=== PATIENT | female | born 1990 | race Caucasian/White ===

== ENCOUNTER → 2016-12-09 | Outpatient (CLI) | payer OTHER ==
--- NOTE | 2016-12-09 12:20 | Diagnostic Imaging Report ---
PROCEDURE: US OB SINGLE FETUS <14 WKS. TECHNIQUE: Multiple real-time grayscale images were obtained over the gravid uterus in various projections. Indication: Evaluate size and dates. Comparison: None. Discussion: Transabdominal sonographic evaluation of the pelvis was performed. Single live intrauterine at 9 weeks 3 days by today's sonographic measurements. heart rate measures 172 beats per minute. [place]-rump length measures 25.4 mm. Yolk sac is present. EDC by today's ultrasound is 07/11/2017. Neither ovary was visualized, likely obscured by bowel. No abnormal adnexal mass or fluid. Impression: 1. Single live intrauterine at 9 weeks 3 days by today's sonographic measurements. Dictated by: Dictated on workstation # [id number]
== END ==
LOC: RAD 11:41
PROVIDERS: ATTEND Family Medicine
DX: Z36 Encounter for antenatal screening of mother (principal); Z3A.09 9 weeks gestation of pregnancy
CPT/HCPCS: 76801

== ENCOUNTER → 2017-02-20 | Outpatient (CLI) | payer OTHER ==
--- NOTE | 2017-02-20 18:14 | Diagnostic Imaging Report ---
INDICATION: Size and dates. TECHNIQUE: Multiple real-time grayscale images were obtained over the gravid uterus. COMPARISON: 12/09/2016. FINDINGS: There is a single living intrauterine in a variable presentation. The placenta is anterior. There is no previa. The biometry correlates with a gestational age of 20 weeks 1 day. Estimated weights is 336 g. There appears to be normal volume of amniotic fluid. IMPRESSION: Single living intrauterine with a sonographically estimated gestational age of 20 weeks 1 day and estimated date of confinement of July 09, 2017. The heart rate is 144 beats per minute. Dictated by: Dictated on workstation # [id number]
== END ==
LOC: RAD 11:40
PROVIDERS: ATTEND Family Medicine
DX: Z36 Encounter for antenatal screening of mother (principal); Z3A.20 20 weeks gestation of pregnancy
CPT/HCPCS: 76805

== ENCOUNTER 2017-07-12 19:28 | Inpatient (IN) | payer OTHER ==
[~2017-07-12] VITALS: Ht 158.8 cm; Wt 78.6 kg
--- OUTSIDE RECORDS SUMMARY | 2017-07-12 19:32 | XMS REPORT ---
Author Author RYAN REBOLLAR [facility] eClinicalWorks Address Unknown Phone Unavailable Care Team Providers Care Commis Chef Name Role Phone RYAN REBOLLAR CP Unavailable Allergies, Adverse Reactions, Alerts Substance Reaction Event Type N.K.D.A. Info Not Available Non Drug Allergy Problems Problem Type Condition Code Onset Dates Condition Status Problem General counseling for prescription of oral contraceptives V25.01 Active Assessment Acute upper respiratory infection, unspecified J06.9 Active Problem Irregular menstrual cycle 626.4 Active Assessment Other viral agents as the cause of diseases classified elsewhere B97.89 Active Medications Medication Code System Code Instructions Start Date End Date Status Dosage 07/15 [facility] 29091255922 1-20 MG-MCG TAKE ONE TABLET BY MOUTH DAILY Claritin-D 24 Hour [facility] [address]-50 10-240 MG Orally Once a day May 13, 2015 May 28, 2015 1 tablet as needed Procedures Procedure Coding System Code Date Office Visit, Est Pt., Level 3 CPT-4 09645 May 13, 2015 Vital Signs Date/Time: May 13, 2015 Temperature 98.2 F Weight 114.5 lbs Height 63 in BMI 20.28 Index Blood Pressure Diastolic 58 mmHg Blood Pressure Systolic 110 mmHg Cardiac Monitoring Heart Rate 84 bpm Results No Known Results Summary Purpose eClinicalWorks Submission
--- OUTSIDE RECORDS SUMMARY | 2017-07-12 19:32 | XMS REPORT ---
Author Author AURELIO HDZ [facility] Address [address] [place] [address] Care Team Providers Care Sales Assistant Institutional Sales Name Role Phone AURELIO HDZ Unavailable PROBLEMS Type Condition ICD9-CM Code PRP87-IX Code Onset Dates Condition Status SNOMED Code Problem Irregular menstrual cycle 626.4 Active 12696154 Problem General counseling for prescription of oral contraceptives V25.01 Active 253379520124065 ALLERGIES No Known Allergies SOCIAL HISTORY Never Assessed PLAN OF CARE VITAL SIGNS MEDICATIONS Medication Instructions Dosage Frequency Start Date End Date Duration Status Vitamin 27-0.8 MG Active RESULTS No Results PROCEDURES No Known procedures IMMUNIZATIONS No Known Immunizations MEDICAL (GENERAL) HISTORY Type Description Date Hospitalization History [facility] 2004
--- OUTSIDE RECORDS SUMMARY | 2017-07-12 19:32 | XMS REPORT ---
Author Author DEVORAH RIOS [facility] Address [address] [place] [address] Care Team Providers Care Drafter [employer] Layout Name Role Phone DEVORAH RIOS Unavailable PROBLEMS Type Condition ICD9-CM Code VQG26-QS Code Onset Dates Condition Status SNOMED Code Problem Irregular menstrual cycle 626.4 Active 67676491 Problem General counseling for prescription of oral contraceptives V25.01 Active 079748450713307 ALLERGIES No Information SOCIAL HISTORY Never Assessed PLAN OF CARE VITAL SIGNS MEDICATIONS Unknown Medications RESULTS Name Result Date Reference Range TEST, URINE (IN HOUSE) 2016-11-14 RESULTS POSITIVE Lot # [id number] Control + Exp date 12/2017 PROCEDURES Procedure Date Ordered Result Body Site URINE TEST November 14, 2016 IMMUNIZATIONS No Known Immunizations MEDICAL (GENERAL) HISTORY Type Description Date Hospitalization History [facility] 2004
--- OUTSIDE RECORDS SUMMARY | 2017-07-12 19:32 | XMS REPORT ---
Author Author JOSE SALGADO Organization [facility] Address [address] [place] [address] Care Team Providers Care Nuclear Physician Name Role Phone JOSE SALGADO Unavailable PROBLEMS Type Condition ICD9-CM Code IST18-AT Code Onset Dates Condition Status SNOMED Code Problem Irregular menstrual cycle 626.4 Active 39349143 Problem General counseling for prescription of oral contraceptives V25.01 Active [id number] ALLERGIES Substance Reaction Event Type Date Status N.K.D.A. Unknown Non Drug Allergy Jun, Unknown SOCIAL HISTORY No smoking Hx information available PLAN OF CARE Activity Details Follow Up prn Reason: VITAL SIGNS Height 63 in 2016-06-28 Weight 115.0 lbs 2016-06-28 Temperature 97.7 degrees Fahrenheit 2016-06-28 Heart Rate 80 bpm 2016-06-28 Respiratory Rate 20 2016-06-28 BMI 20.37 kg/m2 2016-06-28 Blood pressure systolic 118 mmHg 2016-06-28 Blood pressure diastolic 76 mmHg 2016-06-28 MEDICATIONS Medication Instructions Dosage Frequency Start Date End Date Duration Status Amoxicillin 500 MG Orally every 12 hrs 1 tablet 12h Jun, Jun, 10 day(s) Active RESULTS No Results PROCEDURES Procedure Date Ordered Related Diagnosis Body Site Office Visit, Est Pt., Level 3 Jun 28, 2016 IMMUNIZATIONS No Known Immunizations
[2017-07-12 19:45] VITALS: BP 123/75
[2017-07-12] MEDS ORDERED: PREN1TAB86 PO (19:47)
[2017-07-12] MEDS ORDERED: D5 LR IV SOLUTION 1,000 ML IV ONE (20:31)
[2017-07-12] MEDS ORDERED: ZOLPIDEM 5 MG (AMBIEN) TAB PO PRN (20:45)
[2017-07-12] MEDS ORDERED: DINOPROSTONE 10 MG (CERVIDIL) INSERT PV ONE (20:45)
[2017-07-12] MEDS ORDERED: BUTORPHANOL INJ 2 MG/ML (STADOL) VIAL IV PRN (20:45)
[2017-07-12 20:53] LABS: BASOPHILS % (AUTO) 0 % (0-10); EOSINOPHILS # (AUTO) 0.1 10^3/uL (0.0-0.3); EOSINOPHILS % (AUTO) 1 % (0-10); HEMATOCRIT 39 % (35-52); HEMOGLOBIN 13.8 G/DL (11.5-16.0); LYMPHOCYTES # (AUTO) 3.1 X 10^3 (1.0-4.0); LYMPHOCYTES % (AUTO) 21 % (12-44); MEAN CORPUSCULAR HEMOGLOBIN 30 PG (25-34); MEAN CORPUSCULAR HGB CONC 36 G/DL (32-36); MEAN CORPUSCULAR VOLUME 86 FL (80-99); MEAN PLATELET VOLUME 9.9 FL (7.4-10.4); MONOCYTES % (AUTO) 7 % (0-12); NEUTROPHILS # (AUTO) 10.4 X 10^3 (1.8-7.8); NEUTROPHILS % (AUTO) 72 % (42-75); PLATELET COUNT 344 10^3/uL (130-400); RED BLOOD COUNT 4.54 10^6/uL (4.35-5.85); RED CELL DISTRIBUTION WIDTH 12.9 % (10.0-14.5); WHITE BLOOD COUNT 14.6 10^3/uL (4.3-11.0)
[2017-07-12] MEDS: D5 LR IV SOLUTION 1,000 ML IV SCH (21:07)
[2017-07-12 21:47] LABS: BAND NEUTROPHILS 12 %; BASOPHILS % (MANUAL) 0 %; EOSINOPHILS % (MANUAL) 1 %; LYMPHOCYTES % (MANUAL) 25 %; MONOCYTES % (MANUAL) 5 %; NEUTROPHILS % (MANUAL) 57 %; RBC MORPH NORMAL
[2017-07-12] MEDS ORDERED: CATHETER FLUSH 10 ML SYR IV SCH (22:00)
[2017-07-12 23:53] VITALS: BP 112/66
[2017-07-13] VITALS (84 sets, daily range): BP systolic 91–151; BP diastolic 7–84
[2017-07-13] MEDS: D5 LR IV SOLUTION 1,000 ML IV SCH ×3 (04:35→20:39)
[2017-07-13] MEDS ORDERED: OXYTOCIN/NORMAL SALINE 500 ML IV ONE (07:11)
[2017-07-13] MEDS ORDERED: OXYTOCIN/NORMAL SALINE 500 ML IV SCH (07:15)
--- NOTE | 2017-07-13 07:15 | History & Physical-OB ---
OB - Chief Complaint & HPI Date/Time Date of Admission: Date of Admission: Jul 12, 2017 at 19:28 Time Seen by Provider: 07:00 Chief Complaint/History OB-Reason for Admission/Chief: Induction of Labor Hx : 1 Hx Para: 0 Expected Date of Delivery: Jul 11, 2017 Gestational Age in Weeks: 40 Gestational Age in Days: 2 Admission Nurse Assessment Rev: Yes History of Labs GBS negative Allergies and Home Medications Allergies Coded Allergies: No Known Drug Allergies (Unverified , 07/12/17) Home Medications Vit W-Ca,Fe,FA(<1 mg) 1 Each Tablet, 1 EACH PO DAILY, (Reported) OB - History Hx of Present Care: Yes Ultrasounds: Normal mid trimester US Obstetrical Complications: None Medical Complications: None Patient Past Medical History no chronic medical problems Social History/Family History Recent Infectious Disease Expo: No Alcohol Use: Denies Use Recreational Drug Use: No Immunizations Date of Influenza Vaccine: May 03, 2017 OB - Admission Exam Physical Exam Vitals: Vital Signs 07/13/17 06:00 Temp 97.8 Pulse 96 Resp 16 B/P (MAP) 114/61 (78) O2 Delivery Room Air HEENT: Moist Membranes Heart: Rhythm Normal Lungs: Clear Abdomen: Gravid Cervical Dilatation: Fingertip Effacement: 50% Station: -3 Membranes: Intact Muhammad Scoring Tool (Modified) Dilation (cm): 0/Closed (0) Effacement (%): 31-51% (1) Descent/Station: -3 (0) Cervix Consistency: Medium(1) Cervix Position: Middle/Mid-Position (1) Labs Laboratory Tests Test 07/12/17 20:30 Range/Units White Blood Count 14.6 H 4.3-11.0 10^3/uL Red Blood Count 4.54 4.35-5.85 10^6/uL Hemoglobin 13.8 11.5-16.0 G/DL Hematocrit 39 35-52 % Mean Corpuscular Volume 86 80-99 FL Mean Corpuscular Hemoglobin 30 25-34 PG Mean Corpuscular Hemoglobin Concent 36 32-36 G/DL Red Cell Distribution Width 12.9 10.0-14.5 % Platelet Count 344 130-400 10^3/uL Mean Platelet Volume 9.9 7.4-10.4 FL Neutrophils (%) (Auto) 72 42-75 % Lymphocytes (%) (Auto) 21 12-44 % Monocytes (%) (Auto) 7 0-12 % Eosinophils (%) (Auto) 1 0-10 % Basophils (%) (Auto) 0 0-10 % Neutrophils # (Auto) 10.4 H 1.8-7.8 X 10^3 Lymphocytes # (Auto) 3.1 1.0-4.0 X 10^3 Monocytes # (Auto) 1.0 0.0-1.0 X 10^3 Eosinophils # (Auto) 0.1 0.0-0.3 10^3/uL Basophils # (Auto) 0.0 0.0-0.1 10^3/uL Neutrophils % (Manual) 57 % Lymphocytes % (Manual) 25 % Monocytes % (Manual) 5 % Eosinophils % (Manual) 1 % Basophils % (Manual) 0 % Band Neutrophils 12 % Blood Morphology Comment NORMAL OB - Assessment/Plan/Diagnosis Assessment Assessment: induction of labor Plan Plan: Induction (by cervidil) Other Plan desire epidural OTIS DUMONT MD Jul 13, 2017 07:15
[2017-07-13] MEDS: LACTATED RINGERS 1,000 ML IV SCH (07:40)
[2017-07-13] MEDS ORDERED: SUFENTA 0.6MCG/ML BUPIVA 0.125 100 ML ONE (08:17)
[2017-07-13] MEDS ORDERED: fentaNYL INJECTION 100 MCG/2 ML AMP ONE (08:25)
[2017-07-13] MEDS: EPIDURAL (SUFENTA 0.6MCG/ML BUPIVA 0.125%) 100 ML BAG EPI PRN ×2 (08:48→15:45)
[2017-07-13] MEDS ORDERED: diphenhydrAMINE 50 MG/ML INJ (BENADRYL) IV PRN (10:45)
[2017-07-13] MEDS ORDERED: METOCLOPRAMIDE INJ 10 MG/2 ML (REGLAN) IV PRN (10:45)
[2017-07-13] MEDS ORDERED: NALOXONE 0.4 MG/ML 1 ML (NARCAN) VIAL IV PRN ×2 (10:45)
[2017-07-13] MEDS ORDERED: ONDANSETRON 4 MG/2 ML (SDV) Z0FRAN IV PRN (10:45)
[2017-07-13] MEDS ORDERED: MINERAL OIL CONCENTRATE 99.9% 15 ML UDC ONE (11:41)
[2017-07-13] MEDS ORDERED: MEPIVACAINE (CARBOCAINE) 2% 20 ML VIAL ONE (11:42)
[2017-07-13] MEDS ORDERED: LACTATED RINGERS 1,000 ML IV ONE (17:33)
--- NOTE | 2017-07-13 22:21 | Progress Note (SOAP) ---
Subjective Date Seen by Provider: Jul 13, 2017 Time Seen by Provider: 22:10 Subjective/Events-last exam Patient has been in labor throughout the day. Artificial rupture of membranes occurred at 1030 this morning. Patient has been essentially at 12 hours with ruptured membranes. Her group B strep status is negative. There is been no maternal fevers. Mother is very comfortable and is with epidural in place. Objective Exam Vital Signs Date Time Temp Pulse Resp B/P (MAP) Pulse Ox O2 Delivery O2 Flow Rate FiO2 07/13/17 19:00 98.2 62 18 111/65 (80) 99 Non Rebreather 15.00 07/13/17 18:45 85 18 107/63 (78) 99 Non Rebreather 15.00 07/13/17 18:30 62 18 112/52 (72) 100 Non Rebreather 15.00 07/13/17 18:15 66 18 113/74 (87) 100 Non Rebreather 15.00 07/13/17 18:00 61 18 118/70 (86) 100 Non Rebreather 15.00 07/13/17 17:45 97.9 60 18 110/67 (81) 100 Non Rebreather 15.00 18 17:30 64 18 108/65 (79) 100 Non Rebreather 15.00 07/13/17 17:15 99.6 71 18 98/55 (69) 100 Non Rebreather 15.00 07/13/17 17:00 60 18 106/67 (80) 100 Non Rebreather 15.00 07/13/17 16:45 60 18 103/66 (78) 100 Non Rebreather 15.00 07/13/17 16:30 58 18 108/58 (75) 99 Non Rebreather 15.00 18 16:15 77 18 129/76 (93) 99 Non Rebreather 15.00 07/13/17 16:00 97.8 88 18 108/69 (82) 98 Room Air 07/13/17 15:45 82 18 105/68 (80) 98 Room Air 07/13/17 15:30 79 18 108/63 (78) 99 Non Rebreather 15.00 07/13/17 15:15 71 16 104/63 (77) 98 Non Rebreather 15.00 07/13/17 15:00 98.2 64 18 102/59 (73) 98 Non Rebreather 15.00 07/13/17 14:45 73 16 108/66 (80) 97 Non Rebreather 15.00 07/13/17 14:30 81 16 102/62 (75) 97 Non Rebreather 15.00 07/13/17 14:15 80 16 106/64 (78) 97 Room Air 07/13/17 14:00 68 16 107/75 (86) 98 Room Air 07/13/17 13:45 86 16 107/75 (86) 100 Non Rebreather 15.00 07/13/17 13:30 80 16 117/69 (85) 100 Non Rebreather 15.00 07/13/17 13:15 63 16 116/64 (81) 100 Non Rebreather 15.00 07/13/17 13:00 60 16 126/73 (90) 100 Non Rebreather 15.00 07/13/17 12:45 98.6 85 16 116/65 (82) 100 Non Rebreather 15.00 07/13/17 12:30 62 16 91/52 (65) 100 Non Rebreather 15.00 07/13/17 12:15 62 16 125/81 (96) 100 Non Rebreather 15.00 07/13/17 12:00 74 16 117/70 (86) 100 Non Rebreather 15.00 07/13/17 11:45 73 16 119/69 (86) 100 Room Air 07/13/17 11:30 68 16 111/59 (76) 100 Room Air 07/13/17 11:15 66 16 111/79 (90) 100 Room Air 07/13/17 11:00 67 16 108/66 (80) 100 Room Air 07/13/17 10:45 66 16 114/70 (85) 100 Non Rebreather 15.00 07/13/17 10:30 61 16 113/71 (85) 100 Non Rebreather 15.00 07/13/17 10:15 61 16 113/78 (90) 100 Non Rebreather 15.00 07/13/17 10:00 97.7 76 16 96 Non Rebreather 15.00 07/13/17 09:55 70 16 114/64 (81) 97 Non Rebreather 15.00 07/13/17 09:50 77 16 119/67 (84) 97 Non Rebreather 15.00 07/13/17 09:45 79 16 113/67 (82) 98 Room Air 07/13/17 09:40 73 16 123/56 (78) 98 Room Air 07/13/17 09:35 93 16 108/56 (73) 98 Room Air 07/13/17 09:30 72 16 109/70 (83) 99 Room Air 07/13/17 09:27 72 16 109/70 (83) 98 Room Air 07/13/17 09:24 82 16 108/72 (84) 98 Room Air 07/13/17 09:21 76 16 113/71 (85) 98 Room Air 07/13/17 09:18 83 16 115/69 (84) 98 Room Air 07/13/17 09:15 101 16 117/84 (95) 99 Room Air 07/13/17 09:12 74 16 117/80 (92) 99 Room Air 07/13/17 09:09 85 16 100/59 (73) 99 Room Air 07/13/17 09:06 83 16 123/61 (81) 99 Room Air 07/13/17 09:03 83 16 122/73 (89) 99 Room Air 07/13/17 09:00 70 16 112/69 (83) 98 Room Air 07/13/17 08:59 97.0 83 16 118/66 (83) 99 Room Air 07/13/17 08:56 83 16 121/77 (92) 99 Room Air 07/13/17 08:53 95 16 115/69 (84) 98 Room Air 07/13/17 08:50 97 16 120/71 (87) 98 Room Air 07/13/17 08:45 72 16 116/63 (80) 99 Room Air 07/13/17 08:42 84 16 115/65 (82) 99 Room Air 07/13/17 08:40 76 16 116/63 (80) 99 Room Air 07/13/17 08:30 73 16 122/79 (93) 99 Room Air 07/13/17 08:17 81 16 115/68 (84) Room Air 07/13/17 08:00 83 16 105/62 (76) Room Air 07/13/17 07:46 74 16 112/71 (85) Room Air 07/13/17 07:40 96.6 77 16 115/69 (84) Room Air 07/13/17 06:00 97.8 96 16 114/61 (78) Room Air 07/12/17 23:53 96.0 73 16 112/66 (81) Room Air I & O 07/13/17 07:00 Intake Total 1000 ml Balance 1000 ml Capillary Refill : General Appearance: No Apparent Distress Other comments Cervix: Dilation at 3 cm with 80 percent cervical effacement. Infant's head is well applied to the cervix. Procedures Pitocin currently running at 26 mU/m. Assessment/Plan Assessment/Plan Assess & Plan/Chief Complaint 1. Intrauterine at 40 weeks 2 days gestation now and less active labor. Patient was induced with Cervidil and came in during the late p.m. of July 12. Her overall labor pattern has been somewhat dysfunctional. There is been no distress. There were brief periods of decreased variability but no decelerations. Currently monitoring is with active accelerations and good variability. Patient as well as family is aware of her progress and they do desire to have her remain in labor. At this point will continue to go up on Pitocin up to a maximum of 40 mU/m, provided tolerates. Clinical Quality Measures DVT/VTE Risk/Contraindication: Risk Factor Score Per Nursin RFS Level Per Nursing on Admit: 2=Moderate OTIS DUMONT MD Jul 13, 2017 22:21
[2017-07-14] VITALS (7 sets, daily range): BP systolic 93–122; BP diastolic 62–72
[2017-07-14] MEDS ORDERED: CITRIC ACID/SOB CIT (BICITRA) 30 ML UDC ONE
[2017-07-14] MEDS ORDERED: FAMOTIDINE 20MG/2ML IV (PEPCID) ONE
--- NOTE | 2017-07-14 00:05 | Progress Note (SOAP) ---
Subjective Date Seen by Provider: Jul 14, 2017 Time Seen by Provider: 00:05 Subjective/Events-last exam Patient noted to have repetitive late decelerations approximately one half-hour ago during labor. The Pitocin was noted to be at 32 mU/m. At that time the Pitocin was discontinued, a fluid bolus given as well as placement on oxygen by facemask. The monitor is currently without any late decelerations. Objective Exam Vital Signs Date Time Temp Pulse Resp B/P (MAP) Pulse Ox O2 Delivery O2 Flow Rate FiO2 07/13/17 19:15 60 18 115/7 (43) 100 Non Rebreather 15.00 07/13/17 19:00 98.2 62 18 111/65 (80) 99 Non Rebreather 15.00 07/13/17 18:45 85 18 107/63 (78) 99 Non Rebreather 15.00 07/13/17 18:30 62 18 112/52 (72) 100 Non Rebreather 15.00 07/13/17 18:15 66 18 113/74 (87) 100 Non Rebreather 15.00 07/13/17 18:00 61 18 118/70 (86) 100 Non Rebreather 15.00 07/13/17 17:45 97.9 60 18 110/67 (81) 100 Non Rebreather 15.00 07/13/17 17:30 64 18 108/65 (79) 100 Non Rebreather 15.00 07/13/17 17:15 99.6 71 18 98/55 (69) 100 Non Rebreather 15.00 07/13/17 17:00 60 18 106/67 (80) 100 Non Rebreather 15.00 07/13/17 16:45 60 18 103/66 (78) 100 Non Rebreather 15.00 07/13/17 16:30 58 18 108/58 (75) 99 Non Rebreather 15.00 07/13/17 16:15 77 18 129/76 (93) 99 Non Rebreather 15.00 07/13/17 16:00 97.8 88 18 108/69 (82) 98 Room Air 07/13/17 15:45 82 18 105/68 (80) 98 Room Air 07/13/17 15:30 79 18 108/63 (78) 99 Non Rebreather 15.00 07/13/17 15:15 71 16 104/63 (77) 98 Non Rebreather 15.00 07/13/17 15:00 98.2 64 18 102/59 (73) 98 Non Rebreather 15.00 07/13/17 14:45 73 16 108/66 (80) 97 Non Rebreather 15.00 07/13/17 14:30 81 16 102/62 (75) 97 Non Rebreather 15.00 07/13/17 14:15 80 16 106/64 (78) 97 Room Air 07/13/17 14:00 68 16 107/75 (86) 98 Room Air 07/13/17 13:45 86 16 107/75 (86) 100 Non Rebreather 15.00 07/13/17 13:30 80 16 117/69 (85) 100 Non Rebreather 15.00 07/13/17 13:15 63 16 116/64 (81) 100 Non Rebreather 15.00 07/13/17 13:00 60 16 126/73 (90) 100 Non Rebreather 15.00 07/13/17 12:45 98.6 85 16 116/65 (82) 100 Non Rebreather 15.00 07/13/17 12:30 62 16 91/52 (65) 100 Non Rebreather 15.00 07/13/17 12:15 62 16 125/81 (96) 100 Non Rebreather 15.00 07/13/17 12:00 74 16 117/70 (86) 100 Non Rebreather 15.00 07/13/17 11:45 73 16 119/69 (86) 100 Room Air 07/13/17 11:30 68 16 111/59 (76) 100 Room Air 07/13/17 11:15 66 16 111/79 (90) 100 Room Air 07/13/17 11:00 67 16 108/66 (80) 100 Room Air 07/13/17 10:45 66 16 114/70 (85) 100 Non Rebreather 15.00 07/13/17 10:30 61 16 113/71 (85) 100 Non Rebreather 15.00 07/13/17 10:15 61 16 113/78 (90) 100 Non Rebreather 15.00 07/13/17 10:00 97.7 76 16 96 Non Rebreather 15.00 07/13/17 09:55 70 16 114/64 (81) 97 Non Rebreather 15.00 07/13/17 09:50 77 16 119/67 (84) 97 Non Rebreather 15.00 07/13/17 09:45 79 16 113/67 (82) 98 Room Air 07/13/17 09:40 73 16 123/56 (78) 98 Room Air 07/13/17 09:35 93 16 108/56 (73) 98 Room Air 07/13/17 09:30 72 16 109/70 (83) 99 Room Air 07/13/17 09:27 72 16 109/70 (83) 98 Room Air 07/13/17 09:24 82 16 108/72 (84) 98 Room Air 07/13/17 09:21 76 16 113/71 (85) 98 Room Air 07/13/17 09:18 83 16 115/69 (84) 98 Room Air 07/13/17 09:15 101 16 117/84 (95) 99 Room Air 07/13/17 09:12 74 16 117/80 (92) 99 Room Air 07/13/17 09:09 85 16 100/59 (73) 99 Room Air 07/13/17 09:06 83 16 123/61 (81) 99 Room Air 07/13/17 09:03 83 16 122/73 (89) 99 Room Air 07/13/17 09:00 70 16 112/69 (83) 98 Room Air 07/13/17 08:59 97.0 83 16 118/66 (83) 99 Room Air 07/13/17 08:56 83 16 121/77 (92) 99 Room Air 07/13/17 08:53 95 16 115/69 (84) 98 Room Air 07/13/17 08:50 97 16 120/71 (87) 98 Room Air 07/13/17 08:45 72 16 116/63 (80) 99 Room Air 07/13/17 08:42 84 16 115/65 (82) 99 Room Air 07/13/17 08:40 76 16 116/63 (80) 99 Room Air 07/13/17 08:30 73 16 122/79 (93) 99 Room Air 07/13/17 08:17 81 16 115/68 (84) Room Air 07/13/17 08:00 83 16 105/62 (76) Room Air 07/13/17 07:46 74 16 112/71 (85) Room Air 07/13/17 07:40 96.6 77 16 115/69 (84) Room Air 07/13/17 06:00 97.8 96 16 114/61 (78) Room Air I & O 07/14/17 07:00 Intake Total 2500 ml Balance 2500 ml Capillary Refill : General Appearance: No Apparent Distress Other comments cervix: Dilation noted to be at 33-1/2 cm with 80 percent cervical effacement. Vertex presentation essentially unchanged with regards to station compared to previous exam. Assessment/Plan Assessment/Plan Assess & Plan/Chief Complaint 1. Intrauterine at 40 weeks 2 days gestation now and less active labor. Patient was induced with Cervidil and came in during the late p.m. of July 12. Her overall labor pattern has been somewhat dysfunctional. There essentially has been no distress until one half hour ago. monitor revealed repetitive late decelerations when Pitocin was at 32 mU/m. We have recovery from the decelerations now the patient has Pitocin off as well as receiving oxygen by face mask and has received a fluid bolus. With essentially no significant change of the cervix, case was discussed with OB. Will plan on primary low transverse section at this time. Patient and family is in agreement. Clinical Quality Measures DVT/VTE Risk/Contraindication: Risk Factor Score Per Nursin RFS Level Per Nursing on Admit: 2=Moderate OTIS DUMONT MD Jul 14, 2017 00:05
[2017-07-14] MEDS ORDERED: ceFAZolin 1,000 MG (ANCEF) VIAL ONE (00:14)
[2017-07-14] MEDS ORDERED: NS (IVPB) 50 ML ONE (00:14)
[2017-07-14] MEDS ORDERED: fentaNYL INJECTION 100 MCG/2 ML AMP ONE (00:18)
[2017-07-14] MEDS ORDERED: BUPIVACAINE 0.5% 30 ML (SENSORCAINE) VIAL ONE (00:18)
[2017-07-14] MEDS ORDERED: LIDOCAINE PF 2% 5 ML (XYLOCAINE) VIAL ONE (00:18)
[2017-07-14] MEDS ORDERED: PHENYLEPHRINE 100 MCG/ML 10 ML (ANESTHESIA) SYR ONE (00:35)
[2017-07-14] MEDS ORDERED: KETAMINE HCL 100 MG/ML 5 ML VIAL ONE (00:35)
[2017-07-14] MEDS ORDERED: OXYTOCIN/NORMAL SALINE 1,000 ML IV ONE (00:35)
--- NOTE | 2017-07-14 00:54 | Progress Note-Standard ---
Standard Progress Note Progress Notes/Assess & Plan Date Seen by Provider: Jul 14, 2017 Time Seen by Provider: 00:05 Progress/Assessment & Plan this 27-year-old presented for induction of labor with Dr. Antunez. She underwent Cervidil overnight and had artificial rupture membranes with Pitocin augmentation throughout the day today she obtained an epidural and progressed to 3 cm however began having recurrent late decelerations with loss of heart rate tracing variability. I was consulted at that time for delivery due to remoteness from delivery as well as intolerance of labor. Each time Pitocin was augmented to the point of adequate labor there was evidence of intolerance. I discussed with the patient in detail indication for proceeding with delivery. Risk of the procedure was discussed with the patient in detail with her present and other family members present all of their questions were answered. The consent was then obtained. We will proceed with primary low transverse section once or staff is hearing ready to begin. MILTON JARQUIN DO Jul 14, 2017 12:53 am
[2017-07-14] MEDS: LACTATED RINGERS 1,000 ML IV SCH (00:55)
[2017-07-14] MEDS ORDERED: ONDANSETRON 4 MG/2 ML (SDV) Z0FRAN ONE (01:04)
[2017-07-14] MEDS ORDERED: LACTATED RINGERS 1,000 ML IV SCH (01:23)
[2017-07-14] MEDS ORDERED: diphenhydrAMINE 50 MG/ML INJ (BENADRYL) IV PRN (01:30)
[2017-07-14] MEDS ORDERED: ONDANSETRON 4 MG/2 ML (SDV) Z0FRAN IVP PRN ×2 (01:30→01:45)
[2017-07-14] MEDS ORDERED: NALOXONE 0.4 MG/ML 1 ML (NARCAN) VIAL IV PRN (01:30)
[2017-07-14] MEDS ORDERED: morphine INJ 10 MG/ML 1ML (SYR OR VIAL) IVP PRN (01:30)
[2017-07-14] MEDS ORDERED: ONDANSETRON 4 MG/2 ML (SDV) Z0FRAN IV PRN (01:30)
[2017-07-14] MEDS ORDERED: MEPERIDINE (DEMEROL) INJ 50 MG/ML IVP PRN (01:30)
[2017-07-14] MEDS ORDERED: TETANUS,DIPTH,PERTUSS P/F (BOOSTRIX) 0.5 ML VIAL IM SCH (01:45)
[2017-07-14] MEDS ORDERED: HYDROmorphone (DILAUDID) 2 MG/ML VIAL IVP PRN (01:45)
[2017-07-14] MEDS ORDERED: MEASLES,MUMPS,RUBELLA 1 EA INJ SC SCH (01:45)
[2017-07-14] MEDS ORDERED: OXYTOCIN/NORMAL SALINE 500 ML IV SCH (01:45)
--- NOTE | 2017-07-14 01:49 | Discharge Inst-Women's Service ---
Discharge Inst-Women's Serv Depart Medication/Instructions New, Converted or Re-Newed RX: RX on Chart Consults/Follow Up Additional Follow Up: Yes Orders/Referrals Dr. baez in 7-[address] Antunez in 6 weeks Activity Activity: Activity as Tolerated Driving Instructions: No Driving for 1 Week NO SMOKING: NO SMOKING Nothing Inside Vagina: No Douching, No [place], No Tampons Diet Discharge Diet: No Restrictions Symptoms to Report to : Bleeding Excessive, Pain Increased, Fever Over 101 Degrees F, Vaginal Bleeding Increase, Questions/Concerns For Any Problems or Questions: Contact Your Physician Skin/Wound Care Infection Signs and Symptoms: Increased Redness, Foul Odor of Wound, Increased Drainage, Skin Itchy or Has a Rash, Increased Swelling, Temperature Above 101 F Operative Area Clean and Dry: Keep Incision Clean/Dry Stitches/[place]/Dermabond: Dermabond, Care of Stitches Bathing Instructions: MILTON Felton DO Jul 14, 2017 01:49
[2017-07-14] MEDS ORDERED: IBUP-1773 PO (01:51)
[2017-07-14] MEDS ORDERED: DOCU100C37 PO (01:51)
[2017-07-14] MEDS ORDERED: ACHD5005 PO (01:51)
[2017-07-14] MEDS: KETOROLAC 30 MG/ML VIAL IVP SCH ×3 (02:53→20:57)
[2017-07-14] MEDS: HYDROcodone/APAP 5 MG/325 MG (LORTAB) TAB PO PRN ×2 (03:57→17:25)
[2017-07-14] MEDS: D5 LR IV SOLUTION 1,000 ML IV SCH (04:30)
--- NOTE | 2017-07-14 04:41 | OPERATIVE REPORT ---
DATE OF SERVICE: PREOPERATIVE DIAGNOSES: 1. A 27-year-old G1, P0 at 40 weeks and 2 days gestation. 2. intolerance of labor. 3. Remote from delivery. POSTOPERATIVE DIAGNOSES: 1. A 27-year-old G1, P0 at 40 weeks and 2 days gestation. 2. intolerance of labor. 3. Remote from delivery. PROCEDURE: Primary low transverse section. SURGEON: Kj Jarquin DO PRINCIPAL CLOUD ARCHITECT: Dr. Derrick Antunez. ANESTHESIA: Epidural, which was bolused. ESTIMATED BLOOD LOSS: 500 mL. URINE OUTPUT: 500 mL clear at the end of the procedure. FLUIDS: 1000 mL lactated Ringer's solution. FINDINGS: Live female , weight 8 pounds 5 ounces, Apgars of 9 and 9. Grossly normal appearing uterus, bilateral fallopian tubes and ovaries. SPECIMEN SENT: None. INDICATIONS FOR PROCEDURE: This 27-year-old female was admitted by Dr. Antunez for induction of labor. You can please see my preoperative consultation progress note for complete details pertaining to the preoperative discussion. The patient was then taken to the operating room. OPERATIVE REPORT IN DETAIL: Once in the operating room, spinal anesthesia was found to be adequate. She was placed in the supine position with leftward tilt, prepped and draped in normal sterile fashion. A timeout was performed. A Pfannenstiel skin incision was then made with a knife and carried to underlying fascia using Bovie cautery. Fascial incision extended laterally using Bovie cautery. The superior edge of the fascial incision was then grasped with Magda clamps, tented up and dissected off the underlying rectus muscle. The inferior aspect of the fascial incision was then grasped with Magda clamps, tented up and dissected off the underlying rectus muscles. The rectus muscles were then dissected down the midline using Clark scissors, which exposed the peritoneum, which entered bluntly and extended using blunt traction. I placed an Mark ring retractor into peritoneal incision, which offers excellent lateral sidewall retraction. I then make a low transverse incision to the vesicouterine peritoneum using the knife and bluntly dissect the bladder flap off of the lower uterine segment. I proceeded with myotomy until membranes are visualized and ruptured. I then extended the uterine incision laterally and superiorly using bandage scissors. The infant was found in the vertex presentation, occiput posterior. I elevated the infant's head up to the incision where it is delivered and bulb suction is performed of the nares and oropharynx. Anterior and posterior shoulders were delivered. Infant is then brought into the operative field where the cord was doubly clamped and cut. was handed off by Dr. Antunez to the nurses in attendance. Cord blood was collected, 3-vessel cord with intact placenta is delivered spontaneously thereafter. IV Pitocin is initiated to facilitate uterine contraction. Uterine fundus became firmer with bimanual massage. The uterus was then exteriorized and cleared of endometrial clots and debris. I then closed the uterine incision using 0 Vicryl suture in a running locked fashion. A second layer of imbricating 0 Monocryl was placed. Excellent hemostasis was noted after doing this. I then copiously irrigated the pelvis using normal saline and placed the uterus back within the pelvis. Once again, there is no active bleeding noted from any of my dissection planes. I then proceeded with placing Interceed antiadhesive over my low transverse incision and proceed with closing the peritoneum using 2-0 Vicryl suture in running fashion. The rectus muscle was reapproximated using 3-0 Vicryl suture in interrupted fashion. The fascia was reapproximated using 0 Vicryl suture in running fashion. The subcutaneous tissue was reapproximated using 3-0 plain in interrupted subcutaneous stitch and the skin reapproximated using 4-0 Monocryl in a running subcuticular. Dermabond was applied to incision. A sterile dressing is adhesed with white tape. The patient tolerated the procedure well and sent to recovery in stable condition. Lap and sponge counts were correct at the end of the procedure. Instrument counts were correct as well. A 1 gram of Ancef given preoperatively for infection prophylaxis. Job ID: [id number] DocumentID: [id number] Dictated Date: 07/14/2017 01:45:35 [employer] Date: 07/14/2017 04:27:39 Dictated By: KJ JARQUIN DO
[2017-07-14] MEDS: CATHETER FLUSH 10 ML SYR IV SCH ×2 (07:33→20:57)
[2017-07-14] MEDS: DOCUSATE SODIUM 100 MG (COLACE) CAP PO SCH ×2 (09:01→20:57)
--- NOTE | 2017-07-14 13:31 | Anesthesia-Regional Post-Op ---
Regional Patient Condition Mental Status: Alert, Oriented x3 Circulation: Same as Pre-Op Headache: Absent Sensation: Full Recovery Motor Block: Absent Post Op Complications Complications None Follow Up Care/Instructions Patient Instructions None needed. Anesthesia/Patient Condition Patient is doing well, no complaints, stable vital signs, no apparent adverse anesthesia problems. REBECCA CASE DO Jul 14, 2017 13:31
[2017-07-15] MEDS: IBUPROFEN 600 MG (MOTRIN) TAB PO SCH ×5 (02:58→20:48)
[2017-07-15] MEDS: HYDROcodone/APAP 5 MG/325 MG (LORTAB) TAB PO PRN ×4 (02:58→20:48)
[2017-07-15 03:05] VITALS: BP 106/63
[2017-07-15 05:34] LABS: BASOPHILS % (AUTO) 0 % (0-10); EOSINOPHILS # (AUTO) 0.2 10^3/uL (0.0-0.3); EOSINOPHILS % (AUTO) 1 % (0-10); HEMATOCRIT 34 % (35-52); LYMPHOCYTES # (AUTO) 2.5 X 10^3 (1.0-4.0); LYMPHOCYTES % (AUTO) 15 % (12-44); MEAN CORPUSCULAR HEMOGLOBIN 31 PG (25-34); MEAN CORPUSCULAR HGB CONC 35 G/DL (32-36); MEAN CORPUSCULAR VOLUME 87 FL (80-99); MEAN PLATELET VOLUME 9.6 FL (7.4-10.4); MONOCYTES # (AUTO) 0.9 X 10^3 (0.0-1.0); MONOCYTES % (AUTO) 6 % (0-12); NEUTROPHILS # (AUTO) 12.8 X 10^3 (1.8-7.8); NEUTROPHILS % (AUTO) 78 % (42-75); PLATELET COUNT 290 10^3/uL (130-400); RED BLOOD COUNT 3.88 10^6/uL (4.35-5.85); RED CELL DISTRIBUTION WIDTH 12.7 % (10.0-14.5); WHITE BLOOD COUNT 16.5 10^3/uL (4.3-11.0)
[2017-07-15] MEDS: KETOROLAC 30 MG/ML VIAL IVP SCH (07:49)
[2017-07-15 08:30] VITALS: BP 101/63
[2017-07-15] MEDS: DOCUSATE SODIUM 100 MG (COLACE) CAP PO SCH ×2 (08:34→20:48)
--- NOTE | 2017-07-15 10:43 | Anesthesia-Regional Post-Op ---
Regional Patient Condition Mental Status: Alert, Oriented x3 Circulation: Same as Pre-Op Headache: Absent Sensation: Full Recovery Motor Block: Absent Post Op Complications Complications None Follow Up Care/Instructions Patient Instructions None needed. Anesthesia/Patient Condition Patient is doing well, no complaints, stable vital signs, no apparent adverse anesthesia problems. No complications reported per nursing. JUDIT SHEA CRNA Jul 15, 2017 10:43
--- NOTE | 2017-07-15 11:24 | Progress Note-Standard ---
Standard Progress Note Progress Notes/Assess & Plan Date Seen by Provider: Jul 15, 2017 Time Seen by Provider: 11:00 Progress/Assessment & Plan Patient doing well POD 1 PLTCS. Reports good pain control, and she is ambulating and voiding freely. Lochia light. Vital Sign - Last 24 Hours 07/14/17 07/14/17 07/15/17 07/15/17 15:15 20:40 03:05 08:30 Temp 98.3 98.3 98.9 98.4 Pulse 83 76 96 72 Resp B/P (MAP) 105/67 (80) 93/62 (72) 106/63 (77) 101/63 (76) Pulse Ox 98 98 98 99 O2 Delivery Room Air Room Air Room Air Room Air Intake and Output 07/14/17 07/14/17 07/15/17 15:00 23:00 07:00 Intake Total 590 ml 500 ml Output Total 2900 ml Balance -2310 ml 500 ml Incision: c/d/i Laboratory Tests Test 07/15/17 05:27 Range/Units White Blood Count 16.5 H 4.3-11.0 10^3/uL Red Blood Count 3.88 L 4.35-5.85 10^6/uL Hemoglobin 12.0 11.5-16.0 G/DL Hematocrit 34 L 35-52 % Mean Corpuscular Volume 87 80-99 FL Mean Corpuscular Hemoglobin 31 25-34 PG Mean Corpuscular Hemoglobin Concent 35 32-36 G/DL Red Cell Distribution Width 12.7 10.0-14.5 % Platelet Count 290 130-400 10^3/uL Mean Platelet Volume 9.6 7.4-10.4 FL Neutrophils (%) (Auto) 78 H 42-75 % Lymphocytes (%) (Auto) 15 12-44 % Monocytes (%) (Auto) 6 0-12 % Eosinophils (%) (Auto) 1 0-10 % Basophils (%) (Auto) 0 0-10 % Neutrophils # (Auto) 12.8 H 1.8-7.8 X 10^3 Lymphocytes # (Auto) 2.5 1.0-4.0 X 10^3 Monocytes # (Auto) 0.9 0.0-1.0 X 10^3 Eosinophils # (Auto) 0.2 0.0-0.3 10^3/uL Basophils # (Auto) 0.0 0.0-0.1 10^3/uL Diagnosis: POD 1 PLTCS P: Plan for dc tomorrow Continue routine po/pp care MILTON JARQUIN DO Jul 15, 2017 11:24 am
[2017-07-15 15:41] VITALS: BP 104/62
[2017-07-15 21:00] VITALS: BP 103/66
[2017-07-16 03:00] VITALS: BP 104/67
[2017-07-16] MEDS: HYDROcodone/APAP 5 MG/325 MG (LORTAB) TAB PO PRN ×2 (03:11→08:47)
[2017-07-16] MEDS: IBUPROFEN 600 MG (MOTRIN) TAB PO SCH ×2 (03:11→08:47)
[2017-07-16 08:40] VITALS: BP 98/60
[2017-07-16] MEDS: DOCUSATE SODIUM 100 MG (COLACE) CAP PO SCH (08:47)
--- NOTE | 2017-07-16 10:39 | Progress Note-Standard ---
Standard Progress Note Progress Notes/Assess & Plan Date Seen by Provider: Jul 16, 2017 Time Seen by Provider: 10:30 Progress/Assessment & Plan Patient doing well POD 2 PLTCS. Reports good pain control, and she is ambulating and voiding freely. Lochia light. Vital Sign - Last 24 Hours 07/15/17 07/15/17 07/16/17 07/16/17 15:41 21:00 03:00 08:40 Temp 97.8 98.2 97.7 98.0 Pulse 89 73 81 74 Resp B/P (MAP) 104/62 (76) 103/66 (78) 104/67 (79) 98/60 (73) Pulse Ox 98 98 96 99 O2 Delivery Room Air Room Air Room Air Room Air Incision: c/d/i Diagnosis: POD 2 PLTCS P: Plan for dc today Continue routine po/pp care MILTON JARQUIN DO Jul 16, 2017 10:39 am
== END 2017-07-16 13:00 | disposition home or self-care (01) | DRG 766 ==
LOC: LDRP 19:28
PROVIDERS: ADMIT Family Medicine; ATTEND Family Medicine
PROC: 3E0P7GC Introduction of Other Therapeutic Substance into Female Reproductive, Via Natural or Artificial Opening (ICD-10-PCS; 2017-07-12)
PROC: 10D00Z1 Extraction of Products of Conception, Low, Open Approach (ICD-10-PCS; principal; 2017-07-14 00:50)
DX: O76 Abnormality in fetal heart rate and rhythm complicating labor and delivery (principal); Z37.0 Single live birth; Z3A.40 40 weeks gestation of pregnancy
CPT/HCPCS: 36415; 85007; 85025; 85027; 86850; 86900; 86901; 94664

== ENCOUNTER 2019-03-07 05:33 | Outpatient (CLI) | payer OTHER ==
[~2019-03-07] VITALS: Ht 158.8 cm; Wt 53.5 kg
[~2019-03-07 05:33] MED LIST: ACHD5005 PO; DOCU100C37 PO; IBUP-1773 PO; PREN1TAB86 PO
[2019-03-07] MEDS ORDERED: IBUP-1773 PO (09:41)
[2019-03-11] MEDS ORDERED: IBUP-1773 PO (09:34)
[2019-03-11] MEDS ORDERED: ACHD5005 PO (09:34)
== END 2019-03-07 09:48 | disposition home or self-care (01) ==
LOC: PREOP 05:33
PROVIDERS: ATTEND Obstetrics & Gynecology
DX: Z01.818 Encounter for other preprocedural examination (principal)

== ENCOUNTER → 2021-01-11 | Outpatient (CLI) | payer SELFPAY ==
--- NOTE | 2021-01-11 11:25 | Diagnostic Imaging Report ---
PROCEDURE: US PELVIC (NON OB) TECHNIQUE: Multiple real-time grayscale images were obtained over the pelvis in various projections transabdominally. INDICATION: Pelvic pain FINDINGS: The uterus appeared normal. No fibroid or myometrial mass. The endometrium homogenous and normal at 4 to 5 mm thickness. No abnormal color Doppler blood flow. There is no adnexal torsion. The ovaries appeared normal. No pelvic free fluid. The urinary bladder normal. IMPRESSION: Normal pelvic ultrasound. Dictated by: Dictated on workstation # [id number]
== END ==
LOC: RAD 09:39
PROVIDERS: ATTEND Obstetrics & Gynecology
DX: R10.2 Pelvic and perineal pain (principal)
CPT/HCPCS: 76856